=== PATIENT | female | born 1990 | race Caucasian/White ===

== ENCOUNTER → 2016-08-20 | Outpatient (CLI) | payer BC ==
[~2016-08-20] MED LIST: IOHEXOL 240 MG/ML 50ML VIAL. ONE; IOHEXOL 300 MG/ML 75 ML VIAL. IV ONE
--- NOTE | 2016-08-20 12:36 | RAD ---
CT scan of the abdomen and pelvis with contrast 08/20/2016 Clinical history: Mid epigastric abdominal pain. Technique: After the oral and intravenous administration of contrast, contiguous, 5 mm axial sections were obtained through the abdomen and pelvis. 75 cc of Omnipaque 300 were administered intravenously during this examination. One or more of the following individualized dose reduction techniques were utilized for this study: 1. Automated exposure control. 2. Adjustment of the mA and/or kV according to patient size. 3. Use of iterative reconstruction technique. Findings: Comparison is made to the patient's ultrasound of the right upper quadrant of the abdomen dated 08/30/2013. Images through the lung bases are within normal limits. The liver, spleen, pancreas, adrenal glands and left kidney are within normal limits. Several rounded low attenuation structures are seen scattered throughout the right kidney. These measure 3 mm to 1.1 cm in size. They likely represent cysts. Mild dilatation in the right intrarenal collecting system and right renal pelvis is noted. Mild dilatation of the proximal and mid right ureter is seen. The distal right ureter is difficult to follow into the pelvis. No definite ureteral calculus is noted. The abdominal aorta tapers normally. The gallbladder is well-distended. No free fluid or free air is within the abdomen. There is no evidence of bowel obstruction. The appendix is well-visualized and is within normal limits. Images through the pelvis demonstrate the urinary bladder distended with urine. An IUD is seen within the expected location of the endometrial canal of the uterus. A 1.8 cm probable dominant follicle is seen involving the left ovary. No free fluid is seen. A moderate amount of stool is seen within the rectum and sigmoid colon. Minimal shaped curvature of the thoracic lumbar spine is seen. Impression: Mild right hydronephrosis and right hydroureter. No ureteral calculus is definitely seen.
== END | disposition home or self-care (01) ==
LOC: CT 07:58
PROVIDERS: ATTEND Nurse Practitioner Family
DX: R10.13 Epigastric pain (principal); J45.909 Unspecified asthma, uncomplicated
CPT/HCPCS: 74177; Q9966; Q9967

== ENCOUNTER → 2016-09-10 | Outpatient (CLI) | payer BC ==
[~2016-09-10] VITALS: Ht 165.1 cm; Wt 61.2 kg
[~2016-09-10] MED LIST changes: +BUPR300T3 PO; -IOHEXOL 240 MG/ML 50ML VIAL. ONE; -IOHEXOL 300 MG/ML 75 ML VIAL. IV ONE; +MULT1TAB87 PO; +SINCALIDE 1.2 MCG in IV NORMAL SALINE 50ML 30 ML IV ONE
--- NOTE | 2016-09-10 14:43 | RAD ---
Radionuclide hepatobiliary scan with gallbladder ejection fraction, 09/10/2016: History: Nausea Following IV injection of 5.5 mCi of technetium 99m Choletec there was prompt uptake of the radionuclide from the blood stream by the liver. Activity is present in the bile ducts at 10 minutes and in the gallbladder and small bowel at 15 minutes. Additional imaging of the gallbladder was then performed following IV injection of 1.2 mcg of cholecystokinin. There is vigorous gallbladder emptying with gallbladder ejection fraction calculated at 80%. IMPRESSION: 1. Normal radionuclide hepatobiliary scan. 2. The gallbladder ejection fraction is 80%.
== END | disposition home or self-care (01) ==
LOC: NM 09:12
PROVIDERS: ATTEND Surgery
DX: R11.0 Nausea (principal)
CPT/HCPCS: 78226; 96374; 96375; A9537; J2805